=== PATIENT | male | born 1955 | race Caucasian/White ===

== ENCOUNTER 2019-10-17 11:49 | Inpatient (IN) | payer MEDICARE ==
[~2019-10-17] VITALS: Ht 175.3 cm; Wt 62.1 kg
[2019-10-17 13:06] LABS: BASOPHILS ABSOLUTE AUTO 0.04 K/mm3 (0.00-0.23); BASOPHILS PERCENT AUTO 0 % (0-2); EOSINOPHILS ABSOLUTE AUTO 0.01 K/mm3 (0.00-0.68); EOSINOPHILS PERCENT AUTO 0 % (0-6); Hematocrit 41.2 % (37.0-53.0); Hemoglobin 13.9 g/dL (13.5-17.5); IMMATURE GRAN ABSOLUTE AUTO 0.08 K/mm3 (0.00-0.10); IMMATURE GRAN PERCENT AUTO 1 % (0-1); LYMPHOCYTES ABSOLUTE AUTO 1.51 K/mm3 (0.84-5.20); LYMPHOCYTES PERCENT AUTO 10 % (21-46); MONOCYTES ABSOLUTE AUTO 1.24 K/mm3 (0.16-1.47); MONOCYTES PERCENT AUTO 8 % (4-13); Mean Corpuscular HGB 29.6 pg (26.0-34.0); Mean Corpuscular HGB Conc 33.7 g/dL (31.5-36.5); Mean Corpuscular Volume 88 fL (80-100); Mean Platelet Volume 9.4 fL (9.1-12.4); NEUTROPHILS PERCENT AUTO 82 % (41-73); Platelet Count 315 K/mm3 (150-400); RDW Standard Deviation 41.8 fL (35.1-46.3); White Blood Cell Count 15.88 K/mm3 (4.00-11.30)
[2019-10-17 13:06] LABS: Source, Urine Clean Catch
[2019-10-17 13:11] LABS: Blood, Urine 5+ (Neg); Glucose Qualitative, Urine Neg (Neg); Ketones, Urine 2+ (Neg); Leukocyte Esterase, Urine 3+ (Neg); Nitrite, Urine Neg (Neg); Protein, Urine 3+ (Neg); Specific Gravity, Urine 1.015 (1.003-1.022); Urobilinogen, Urine 3+ (Normal)
[2019-10-17 13:21] LABS: Appearance, Urine Cloudy (Clear); Color, Urine Yellow (P-Yellow)
[2019-10-17 13:22] LABS: Bilirubin, Urine 1+ (Neg)
[2019-10-17 13:23] LABS: Bacteria Many /hpf; Red Blood Cells, Urine TNTC /hpf (0-2); Squamous Epithelial Cells Not Seen /hpf (Few); Transitional Epithelial Cells Few /hpf (0-Rare); White Blood Cells, Urine TNTC /hpf (0-5)
[2019-10-17 13:35] LABS: Alanine Aminotransfer (ALT/SGP 35 U/L (12-78); Albumin, Blood 2.9 g/dL (3.4-5.0); Albumin/Globulin Ratio 0.5 (0.8-1.8); Alk Phos 139 U/L (50-136); Anion Gap 9 mmol/L (6-16); Aspartate Aminotrans (AST/SGOT 25 U/L (12-37); Bilirubin, Total 1.4 mg/dL (0.1-1.0); Blood Urea Nitrogen 29 mg/dL (8-24); Bun/Creatinine Ratio 21.6 (12.0-20.0); CO2, Blood 28 mmol/L (21-32); Calcium, Blood 9.6 mg/dL (8.5-10.1); Chloride, Blood 94 mmol/L (98-108); Creatinine, Blood 1.34 mg/dL (0.60-1.20); Globulin, Blood 5.5 g/dL (2.2-4.0); Glomerular Filtration Rate 57 (60-); Glucose, Blood 117 mg/dL (70-99); Potassium, Blood 3.8 mmol/L (3.5-5.5); Sodium, Blood 131 mmol/L (136-145); Total Protein, Blood 8.4 g/dL (6.4-8.2); Troponin I <0.015 ng/mL (0.000-0.040)
--- NOTE | 2019-10-18 04:22 | NUR ---
SHIFT SUMMARY PT NEW ED ADMIT THIS EVENING. PT DECONDITIONED, APPEARS MALNOURISHED. PT REPORTS HEALTH HAS BEEN POOR FOR SOME TIME BUT PT HAS NOT BEEN TO THE DOCTOR FOR "2O YEARS". PT ACTIVELY VOMITING WHEN REACHING ROOM FROM ED. DR. WORLEY NOTIFIED WITH NEW ORDERS FOR PHENERGAN. PHENERGAN 25 MG IV GIVEN W/ GOOD EFFECT. PT ABLE TO TOLERATE CONTRAST FOR CT THIS AM FOLLOWING. PT WITH VERY STRONG BODY ODOR. PARTIAL BED BATH GIVEN. PT WITH PULL UP IN PLACE. MOSTLY CONTINENT. DID HAVE ONE EPISODE OF INCONTINENCE WHILE SLEEPING. PT ALERT AND ORIENTED. WEAK BUT EASY SBA TO RESTROOM. SLEPT LITTLE BITS OFF AND ON. HAD MOSTLY ICE CHIPS THIS EVENING AFTER VOMITING EARLY ON. TOLERATED WELL AFTER PHENERGAN. VITAL SIGNS STABLE. AFEBRILE TONIGHT. CALL LIGHT WITHIN REACH. WILL CONTINUE TO MONITOR.
[2019-10-18 05:24] LABS: BASOPHILS ABSOLUTE AUTO 0.01 K/mm3 (0.00-0.23); BASOPHILS PERCENT AUTO 0 % (0-2); EOSINOPHILS PERCENT AUTO 0 % (0-6); Hematocrit 34.6 % (37.0-53.0); Hemoglobin 11.6 g/dL (13.5-17.5); IMMATURE GRAN ABSOLUTE AUTO 0.08 K/mm3 (0.00-0.10); IMMATURE GRAN PERCENT AUTO 1 % (0-1); LYMPHOCYTES ABSOLUTE AUTO 1.08 K/mm3 (0.84-5.20); LYMPHOCYTES PERCENT AUTO 9 % (21-46); MONOCYTES ABSOLUTE AUTO 1.09 K/mm3 (0.16-1.47); MONOCYTES PERCENT AUTO 9 % (4-13); Mean Corpuscular HGB 29.7 pg (26.0-34.0); Mean Corpuscular HGB Conc 33.5 g/dL (31.5-36.5); Mean Corpuscular Volume 89 fL (80-100); Mean Platelet Volume 9.5 fL (9.1-12.4); NEUTROPHILS ABSOLUTE AUTO 9.62 K/mm3 (1.96-9.15); NEUTROPHILS PERCENT AUTO 81 % (41-73); Platelet Count 282 K/mm3 (150-400); RDW Coefficient Variation 13.1 % (11.7-14.2); RDW Standard Deviation 42.7 fL (35.1-46.3); White Blood Cell Count 11.88 K/mm3 (4.00-11.30)
[2019-10-18 05:55] LABS: Albumin, Blood 2.1 g/dL (3.4-5.0); Albumin/Globulin Ratio 0.5 (0.8-1.8); Bilirubin, Total 0.7 mg/dL (0.1-1.0); Bun/Creatinine Ratio 20.5 (12.0-20.0); Calcium, Blood 7.9 mg/dL (8.5-10.1); Creatinine, Blood 1.32 mg/dL (0.60-1.20); Globulin, Blood 4.4 g/dL (2.2-4.0); Potassium, Blood 3.4 mmol/L (3.5-5.5); Total Protein, Blood 6.5 g/dL (6.4-8.2)
[2019-10-18 05:58] LABS: Thyroid Stimulating Hormone 0.469 uIU/mL (0.360-4.800)
--- NOTE | 2019-10-18 06:28 | NUR ---
PT TO CT SCAN VIA WHEELCHAIR.
--- NOTE | 2019-10-18 13:29 | NUR ---
PATIENT PICKED UP BY FOLLOW UP SPECIALIST FOR BARRIUM SWALLOW.
--- NOTE | 2019-10-18 18:08 | NUR ---
SHIFT SUMMARY THE PATIENT HAS HAD A BUSY SHIFT. HE HAS HICCUPS VERY FREQUENTLY AND DID COMPLAIN OF NAUSEA ONCE THIS AFTERNOON, AT WHICH TIME HE ALSO VOMITED TWICE. IV PHENERGAN ADMINISTERED PER PATIENT REQUEST WITH EFFECTIVENESS. IV ABX CONTINUE WITHOUT S/SX OF ADVERSE REACTIONS NOTED OR REPORTED. PATIENT DENIES PAIN. PATIENT AMBULATES FAIRLY WELL NOW THAT HE IS NOT ATTACHED TO THE IV POLE. PATIENT IS ALERT AND ORIENTED AND COOPERATIVE WITH STAFF. CALLS FOR ASSISTANCE NEEDED. PATIENT DECLINES THE HEPARIN (FOR DVT PROPHY) AND NICOTINE PATCH. HE HAS BEEN EATING SMALL AMOUNTS OF FOOD BUT TAKES IT SLOWLY SUGGESTED. WILL CONTINUE TO MONITOR AND PROVIDE CARE NEEDED.
--- NOTE | 2019-10-19 04:55 | NUR ---
NOC SHIFT SUMMARY PT PLEASANT AND COOPERATIVE WITH CARE. AAOX3, RESP E/U. STEADY GATE. TREATED FOR NAUSEA WITH ZOFRAN THIS NIGHT TO GOOD EFFECT. PT HAS SLEPT MUCH OF THE NIGHT. LOW GRADE FEVER EARLY THIS NIGHT TREATED WITH TYLENOL TO GOOD EFFECT. HAS BEEN CONTINENT OF BOWEL AND BLADDER. ON TELE PRESENTLY SINUS RHYTHIM @ 58.
[2019-10-19 05:23] LABS: BASOPHILS ABSOLUTE AUTO 0.04 K/mm3 (0.00-0.23); BASOPHILS PERCENT AUTO 0 % (0-2); EOSINOPHILS ABSOLUTE AUTO 0.03 K/mm3 (0.00-0.68); EOSINOPHILS PERCENT AUTO 0 % (0-6); Hematocrit 32.6 % (37.0-53.0); Hemoglobin 11.1 g/dL (13.5-17.5); IMMATURE GRAN ABSOLUTE AUTO 0.05 K/mm3 (0.00-0.10); IMMATURE GRAN PERCENT AUTO 1 % (0-1); LYMPHOCYTES ABSOLUTE AUTO 1.01 K/mm3 (0.84-5.20); LYMPHOCYTES PERCENT AUTO 10 % (21-46); MONOCYTES PERCENT AUTO 7 % (4-13); Mean Corpuscular HGB 30.1 pg (26.0-34.0); Mean Corpuscular Volume 88 fL (80-100); Mean Platelet Volume 9.4 fL (9.1-12.4); NEUTROPHILS PERCENT AUTO 81 % (41-73); Platelet Count 315 K/mm3 (150-400); RDW Coefficient Variation 13.2 % (11.7-14.2); RDW Standard Deviation 43.3 fL (35.1-46.3); Red Blood Cell Count 3.69 M/mm3 (4.30-5.90); White Blood Cell Count 9.83 K/mm3 (4.00-11.30)
[2019-10-19 05:48] LABS: Anion Gap 10 mmol/L (6-16); Blood Urea Nitrogen 22 mg/dL (8-24); Bun/Creatinine Ratio 18.2 (12.0-20.0); CO2, Blood 23 mmol/L (21-32); Calcium, Blood 8.3 mg/dL (8.5-10.1); Chloride, Blood 104 mmol/L (98-108); Creatinine, Blood 1.21 mg/dL (0.60-1.20); Glomerular Filtration Rate >60 (60-); Glucose, Blood 120 mg/dL (70-99); Magnesium, Blood 2.1 mg/dL (1.6-2.4); Potassium, Blood 3.6 mmol/L (3.5-5.5); Sodium, Blood 137 mmol/L (136-145)
--- NOTE | 2019-10-19 09:47 | NUR ---
PATIENT IS TO BE DISCHARGED HOME. TELE REMOVED AND RETURNED TO PCU. AWAITING OFFICIAL D/C ORDERS.
[2019-10-19] MEDS ORDERED: OMEP20ER PO (12:00)
[2019-10-19] MEDS ORDERED: CEPH500 PO (12:01)
--- NOTE | 2019-10-19 12:21 | NUR ---
DISCHARGE INSTRUCTIONS WENT OVER WITH PATIENT. EDUCATIONAL MATERIAL PROVIDED TO PATIENT ON HICCUPS AND UROSEPSIS. PO ABX FAXED TO [facility] ON [address] TO BE COVERED BY [facility]. PATIENT'S EX- JUST ARRIVED AND WILL BE TRANSPORTING PATIENT HOME. ALL QUESTIONS ANSWERED. BOTH IV's REMOVED.
--- NOTE | 2019-10-19 12:27 | NUR ---
PATIENT DISCHARGED HOME WITH EX- AT 1227.
== END 2019-10-19 12:27 | disposition home or self-care (01) | DRG 871 ==
LOC: ER 11:49 → MEDS 18:02
PROVIDERS: Internal Medicine; Physician Assistant; ADMIT Internal Medicine
DX: A41.9 Sepsis, unspecified organism (principal); E43 Unspecified severe protein-calorie malnutrition; N39.0 Urinary tract infection, site not specified; N17.9 Acute kidney failure, unspecified; E87.6 Hypokalemia; F17.210 Nicotine dependence, cigarettes, uncomplicated; R29.6 Repeated falls; N18.9 Chronic kidney disease, unspecified; R65.20 Severe sepsis without septic shock; K21.9 Gastro-esophageal reflux disease without esophagitis; J43.9 Emphysema, unspecified; R31.9 Hematuria, unspecified; Z68.20 Body mass index [BMI] 20.0-20.9, adult
CPT/HCPCS: 36415; 71046; 71260; 74177; 74220; 80048; 80053; 81001; 83605; 83735; 83880; 84443; 84484; 85025; 87040; 87077; 87086; 87186; 93005; 93010; 96365; 96375; 96376; 97161; 99285-25; A9270; J0696; J2405; J2550; J7030; Q9967

== ENCOUNTER → 2020-07-15 | Outpatient (CLI) | payer MEDICARE ==
[~2020-07-15] MED LIST: CEPH500 PO; OMEP20ER PO
[2020-07-15 17:51] LABS: Appearance, Urine Clear (Clear); Bilirubin, Urine Neg (Neg); Blood, Urine 1+ (Neg); Color, Urine Yellow (P-Yellow); Glucose Qualitative, Urine Neg (Neg); Ketones, Urine Neg (Neg); Leukocyte Esterase, Urine 2+ (Neg); Nitrite, Urine Neg (Neg); Protein, Urine 2+ (Neg); Urobilinogen, Urine NORM (Normal)
[2020-07-15 18:08] LABS: Bacteria Few /hpf; Red Blood Cells, Urine Rare /hpf (0-2); Squamous Epithelial Cells Rare /hpf (Few)
[2020-07-15 18:38] LABS: Protein, Urine Random 28.6 mg/dL (0.0-11.9)
[2020-07-15 18:39] LABS: Creatinine, Urine Random 83.6 mg/dL (27.00-270.00)
== END | disposition home or self-care (01) ==
LOC: LAB 16:12 → LAB SHORT 16:12
PROVIDERS: Internal Medicine
DX: N18.32 Chronic kidney disease, stage 3b (principal); R32 Unspecified urinary incontinence
CPT/HCPCS: 81001; 82570; 84156; 87086

== ENCOUNTER → 2020-11-02 | Outpatient (CLI) | payer MEDICARE | LOC: LAB 13:49 → LAB SHORT 13:49 | DX: Z48.817 Encounter for surgical aftercare following surgery on the skin and subcutaneous tissue (principal); Z48.02 Encounter for removal of sutures; L08.9 Local infection of the skin and subcutaneous tissue, unspecified | CPT/HCPCS: 87070; 87077; 87186; 87205 ==